=== PATIENT | female | born 1990 | race Caucasian/White ===

== ENCOUNTER 2018-09-08 11:27 | Inpatient (IN) | payer BC ==
[~2018-09-08] VITALS: Ht 154.9 cm; Wt 75.5 kg
[2018-09-08] VITALS (19 sets, daily range): BP systolic 112–162; BP diastolic 61–101; PULSE 88–115; TEMP 97.6–98
[~2018-09-08 11:27] MED LIST: MOTRIN 800800 MG/TAB PO; PERCOCET 325 MG1 TA2 PO
--- NOTE | 2018-09-08 11:40 | NUR ---
Patient ambulatory to LR5, changed into gown, FHR/TOCO monitors placed and explained. Patient states that she was just at the office and stripped her membranes and was having some extra pink tinged mucous and starting marie. SVE-5-/-2 Plan of care discussed and will continue to monitor.
[2018-09-08] MEDS ORDERED: MAGNESIUM CHELA27 MG PO (11:53)
[2018-09-08] MEDS ORDERED: CONCEPT DHA1 CAP PO (11:54)
[2018-09-08] MEDS ORDERED: CALCIUM-MAGNES1 EAC1 PO (11:54)
[2018-09-08] MEDS ORDERED: PRILOSEC10 MG PO (11:55)
--- NOTE | 2018-09-08 12:45 | NUR ---
IV started in left hand, blood drawn and sent to lab, LR infusing. Patient requesting epidural and [employer] notified. 1250: Patient off monitor to void. 1318: Patient sits up on edge of bed for procedure. FHR difficult to trace during this time due to patients position. [employer] at bedside for epidural placement. 1323: Single shot given and patient tolerates well. 1328: Patient repositioned and plan of care discussed. 1355: Patient comfortable with epidural and Damian catheter placed, patient tolerates well. 1412: Dr. Calero at bedside assessing patient/FHR strip. 1415: SVE per physician /-1 and AROM at this time with clear fluid noted. 1420: FHR difficult to trace and patient turn wedged left. FHR baseline 120bpm. 1450: FHR monitor traces maternal heart rate.
[2018-09-08 13:09] LABS: BASO % 0.1 % (0.0-2.0); EOS # 0.1 (0.0-0.7); EOS % 0.4 % (0-4.0); GRAN # 10.7 (1.4-6.5); GRAN % 79.7 % (42.2-75.2); HEMATOCRIT 38.5 % (37.0-47.0); HEMOGLOBIN 12.6 g/dl (12.5-16.0); LYMPH # 1.8 (1.2-3.4); LYMPH % 13.3 % (20.0-51.0); MEAN CELL VOLUME 85 fl (80.0-100.0); MEAN CORPUSCULAR HEMOGLOBIN 28 pg (27.0-31.0); MEAN CORPUSCULAR HGB CONC 33 g/dl (33.0-37.0); MEAN PLATELET VOLUME 10.5 fl (7.4-10.4); MONO # 0.8 (0.1-0.6); MONO % 5.9 % (1.7-9.3); PLATELET COUNT 290 K/mm3 (130-400); RED BLOOD COUNT 4.53 M/mm3 (4.10-5.30)
--- NOTE | 2018-09-08 15:30 | NUR ---
Patient becoming more uncomfortable and [employer] notified. 1605: Dr. Calero at bedside and SVE per physician-10, order to break down bed and set patient up for vaginal delivery. 1610: Damian catheter removed and patient tolerates well. Patient more uncomfortable with contractions. 1616: Bed taken apart and patient set up for delivery. Patient begins to push with contractions per Dr. Calero. 1620: Spontaneous vaginal delivery of head followed by body. Infant to patient abdomen and cord clamped by Dr. Calero and cut by FOB. Jones RN assumes care of . Cord blood obtained. 1624: Spontaneous vaginal delivery of placenta and pitocin bolus started per protocol. Fundal massage done/firm/bleeding WNL. Dr. Calero begins to repair 2nd degree laceration. Pericare done. 1630: Patient repositioned, ice pack to perineum, fundal massage done/firm/bleeding WNL, Plan of care discussed and will continue to monitor.
[2018-09-08] MEDS ORDERED: MOTRIN 800800 MG/TAB PO (16:16)
[2018-09-08] MEDS ORDERED: PERCOCET 325 MG1 TA2 PO (16:16)
--- NOTE | 2018-09-08 18:00 | NUR ---
Patient sits up on edge of bed and dangles feet, epidural catheter removed and patient tolerates well, patient ambulates to bathroom with standby assist. Voids, pericare done, new gown/underwear/ice pack on. Patient ambulates to new room, oriented to room and plan of care discussed.
[2018-09-09 00:15] VITALS: BP 116/79; PULSE 84; TEMP 97.6
[2018-09-09 04:15] VITALS: BP 101/88; PULSE 83; TEMP 97.9
--- NOTE | 2018-09-09 04:26 | NUR ---
PT TO WAKE BABY AND BRSTFEED- ENCOURAGED TO CALL IF ASSIST IS NEEDED
[2018-09-09 06:45] VITALS: BP 118/70; PULSE 90; TEMP 97.4
--- NOTE | 2018-09-09 12:02 | NUR ---
Initial visit; Parents thanked Wet End Operator for offering congratulations and God's blessings to their family for the of their daughter. Wet End Operator thanked them for choosing our hospital.
[2018-09-09 15:00] VITALS: BP 118/72; PULSE 90; TEMP 97.8
--- NOTE | 2018-09-09 17:30 | NUR ---
Discharge instructions given, pt verbalizes understanding. no further questions noted. Bands matched and hugs tag removed.
== END 2018-09-09 18:15 | disposition home or self-care (01) | DRG 807 ==
LOC: LDRO 11:27 → LDR 12:36 → OB 17:18
PROVIDERS: ADMIT Obstetrics & Gynecology
PROC: 10E0XZZ Delivery of Products of Conception, External Approach (ICD-10-PCS; principal; 2018-09-08)
PROC: 0KQM0ZZ Repair Perineum Muscle, Open Approach (ICD-10-PCS; 2018-09-08)
DX: O70.1 Second degree perineal laceration during delivery (principal); Z37.0 Single live birth; O99.344 Other mental disorders complicating childbirth; F41.8 Other specified anxiety disorders; Z3A.38 38 weeks gestation of pregnancy; O76 Abnormality in fetal heart rate and rhythm complicating labor and delivery
CPT/HCPCS: J2590; J2795; J7120

== ENCOUNTER 2023-06-21 12:30 | Outpatient (CLI) | payer BC ==
[~2023-06-21] VITALS: Ht 154.9 cm; Wt 74.1 kg
[~2023-06-21 12:30] MED LIST changes: +ASPIRIN 81M81 MG/TA2 PO; +CALCIUM-MAGNES1 EAC1 PO; +CONCEPT DHA1 CAP PO; +LEVOXYL0.05 MG PO; +LEXAPRO 10MG10 MG PO; +MAGNESIUM CHELA27 MG PO; +MAGNESIUM200 MG PO; +PRILOSEC10 MG PO; +PROGRAF 1MG1 MG PO; +VITAMIN B COMPL1 SGL PO
[2023-06-21] MEDS ORDERED: FERROUS SU325 MG/TAB PO (13:04)
[2023-06-21 13:10] VITALS: BP 137/81; PULSE 99; TEMP 98.2
--- NOTE | 2023-06-21 13:25 | NUR ---
1230- Pt arrives on unit ambulatory by herself. Sent from office after positive nitroxine test in office. Pt states she has had increased discharge over the weekend, having to change her underwear more frequently but denies wearing pads or having large gush of fluid. Pt denies VB, UCs. Reports good FM. Assessments completed. 1255- Dr Calero at bedside. SVE without gel. MD reports feeling BOW through cervix, bloody show noted on exam glove. Amniotrace swab performed, negative. MD gave precautions but gave VORB to discharge Pt home. 1310- EFM and TOCO off. 1325- Discharge paperwork given and explained. Labor precautions given. Pt ambulates off unit in stable condition.
[2023-06-28] MEDS ORDERED: MOTRIN 800800 MG/TAB PO (18:16)
== END 2023-06-21 13:25 | disposition home or self-care (01) ==
LOC: LDRO 12:30
DX: Z34.93 Encounter for supervision of normal pregnancy, unspecified, third trimester (principal); Z3A.36 36 weeks gestation of pregnancy

== ENCOUNTER 2023-06-28 10:50 | Inpatient (IN) | payer BC ==
[~2023-06-28] VITALS: Ht 154.9 cm; Wt 75.5 kg
[2023-06-28] VITALS (26 sets, daily range): BP systolic 117–141; BP diastolic 62–95; PULSE 74–120; TEMP 97.7–97.8
[~2023-06-28 10:50] MED LIST changes: +FERROUS SU325 MG/TAB PO
[2023-06-28] MEDS ORDERED: LR & Oxytocin 500 ML IV SCH (11:00)
[2023-06-28] MEDS ORDERED: LR 1,000 ML IV SCH (11:00)
[2023-06-28 11:36] LABS: BASO % 0.2 % (0.0-2.0); EOS % 0.1 % (0.0-4.0); GRAN # 8.8 K/mm3 (1.4-6.5); GRAN % 78.8 % (42.2-75.2); HEMATOCRIT 40.3 % (37.0-47.0); HEMOGLOBIN 13.3 g/dl (12.5-16.0); LYMPH # 1.7 K/mm3 (1.2-3.4); LYMPH % 15.3 % (20.0-51.0); MEAN CELL VOLUME 89 fl (80.0-100.0); MEAN CORPUSCULAR HEMOGLOBIN 29 pg (27-31); MEAN CORPUSCULAR HGB CONC 33 g/dl (33.0-37.0); MEAN PLATELET VOLUME 10.4 fl (7.4-10.4); MONO # 0.6 K/mm3 (0.1-0.6); PLATELET COUNT 287 K/mm3 (130-400); RED BLOOD COUNT 4.52 M/mm3 (4.10-5.30)
[2023-06-28 11:59] LABS: ALBUMIN 2.8 gm/dL (3.5-5.0); BILIRUBIN,TOTAL 0.4 mg/dL (0.2-1.2); CALCIUM 9.3 mg/dL (8.4-10.2); CREATININE, serum 0.6 mg/dL (0.57-1.11); TOTAL PROTEIN 6.8 gm/dL (6.2-8.1)
--- NOTE | 2023-06-28 12:03 | NUR ---
Pt sent over as direct admit from office per Dr. Calero. Pt arrives ambulatory at 1100, changes into gown, EFM explained and placed. VS and assessment done. Pt denies leaking fluid and vaginal bleeding, does report some spotting after appointment today. Pt reports good movement and some irregular contractions. Pt denies current headache and vision changes, denies current pain. IV started in left forearm, labs drawn, LR started per protocol. FHR Cat I, occasional contractions noted.
--- NOTE | 2023-06-28 12:20 | NUR ---
Dr. Calero to bedside at 1205. SVE /-2. AROM at 1207, clear fluid noted. Pitocin started at this time per physician orders.
[2023-06-28] MEDS ORDERED: ROPivacaine PF 0.2% 200 ML IV ONE (13:41)
--- NOTE | 2023-06-28 14:40 | NUR ---
Josh Dumont, PRESCRIPTION BENEFIT SPECIALIST to bedside at 1340. Pt repositioned sitting at bedside for epidural placement FHM tracing maternal HR in this position. Test dose given at 1356, pt HR spike and pt reported feeling funny. Josh Dumont removed epidural catheter and placed again. Second test dose given at 1359. Pt tolerated well. Pt repositioned low fowlers at 1407.
[2023-06-28] MEDS ORDERED: Naloxone 0.4 MG/ML VIAL IV PRN ×2 (14:45→17:15)
[2023-06-28] MEDS ORDERED: ePHEDrine 50 MG/10 ML VIAL IV PRN (14:45)
[2023-06-28] MEDS ORDERED: diphenhydrAMINE 25 MG CAP PO PRN (14:45)
[2023-06-28] MEDS ORDERED: Ondansetron 4 MG/2 ML VIAL IV PRN (14:45)
[2023-06-28] MEDS ORDERED: diphenhydrAMINE 50 MG/ML 1 ML VIAL IV PRN (14:45)
[2023-06-28] MEDS ORDERED: Mag/Al Hydrox/Simeth Susp 30 ML CUP PO PRN (17:15)
[2023-06-28] MEDS ORDERED: Ibuprofen 800 MG TAB PO SCH (17:15)
[2023-06-28] MEDS ORDERED: Measles/Mumps/Rubella Virus Vaccine Live w Diluent 0.5 ML VIAL SQ SCH (17:15)
[2023-06-28] MEDS ORDERED: Acetaminophen 500 MG TAB PO PRN (17:15)
[2023-06-28] MEDS ORDERED: Phenylephrine/Mineral Oil/Petrolatum 57 GM TUBE RC PRN (17:15)
[2023-06-28] MEDS ORDERED: Magnes Hydrox (MOM) 80 MG/ML 30 ML CUP PO PRN (17:15)
[2023-06-28] MEDS ORDERED: Witch Hazel 50% Pads Bulk TUB TP PRN (17:15)
[2023-06-28] MEDS ORDERED: oxyCODONE 5 MG TAB PO PRN (17:15)
[2023-06-28] MEDS ORDERED: Loratadine 10 MG TAB PO PRN (17:15)
--- NOTE | 2023-06-28 17:20 | NUR ---
Dr. Calero to bedside at 1632, SVE per provider /+3. Pt repositioned for delivery, nursery RN and rn charge called to room. Damian removed at 1635, 300ml urine noted. delivered spontaneously at 1644, placed on mother's abdomen by Dr. Calero. Cord clamped by Dr. Calero and cut by father, care of infant transferred to Loren, RN of nursery. Placenta delivered spontaneously at 1647, pitocin started per protocol at this time. Repair of 2nd degree laceration performed by Dr. aClero. Pericare provided, ice pack placed, pt repositioned for comfort.
[2023-06-28] MEDS ORDERED: traZODone 50 MG TAB PO PRN (21:00)
--- NOTE | 2023-06-28 21:00 | NUR ---
Up to bathroom with slightly unsteady gait. Voids scant amount, performs own pricare. Pads, panties, clean gown on. Transferred to room via 'tony steady' . Oriented to room, post- plan care. Instructed to call for assisteance when needs to get up out of bed. Verbalizes understanding.
[2023-06-29 00:30] VITALS: BP 138/78; PULSE 74
[2023-06-29 07:00] VITALS: BP 133/93; PULSE 100; TEMP 98.4
[2023-06-29] MEDS ORDERED: Sennosides/Docusate 8.6-50 MG TAB PO SCH (08:00)
[2023-06-29] MEDS ORDERED: Escitalopram 10 MG TAB PO SCH (09:00)
--- NOTE | 2023-06-29 09:59 | NUR ---
Initial visit; Parents thanked Personal Injury Law Specialist for offering congratulations and God's blessings for the of their daughter. Personal Injury Law Specialist thanked family for choosing [facility].
[2023-06-29 14:45] VITALS: BP 125/80; PULSE 90; TEMP 98.2
--- NOTE | 2023-06-29 19:45 | NUR ---
1945- NURSE TO ROOM. DISCHARGE INSTRUCTIONS GIVEN AND PT VERBALIZES UNDERSTANDING. FORMS SIGNED. MMR INJECTION TO RIGHT ARM CHARTED. 2004- PT ESCORTED TO EXIT FOR DISMISSAL. BELONGINGS AND BABY WITH PT, ACCOMPANIED BY SPOUSE.
== END 2023-06-29 20:05 | disposition home or self-care (01) | DRG 807 ==
LOC: LDRO 10:50 → OB 10:56 → LDR 10:56 → OB 21:30
PROVIDERS: ADMIT Obstetrics & Gynecology
PROC: 10E0XZZ Delivery of Products of Conception, External Approach (ICD-10-PCS; principal; 2023-06-28)
PROC: 0KQM0ZZ Repair Perineum Muscle, Open Approach (ICD-10-PCS; 2023-06-28)
PROC: 10907ZC Drainage of Amniotic Fluid, Therapeutic from Products of Conception, Via Natural or Artificial Opening (ICD-10-PCS; 2023-06-28)
PROC: 3E033VJ Introduction of Other Hormone into Peripheral Vein, Percutaneous Approach (ICD-10-PCS; 2023-06-28)
DX: O13.4 Gestational [pregnancy-induced] hypertension without significant proteinuria, complicating childbirth (principal); Z37.0 Single live birth; O70.1 Second degree perineal laceration during delivery; O99.344 Other mental disorders complicating childbirth; F32.A Depression, unspecified; E03.9 Hypothyroidism, unspecified; O99.62 Diseases of the digestive system complicating childbirth; O99.284 Endocrine, nutritional and metabolic diseases complicating childbirth; K21.9 Gastro-esophageal reflux disease without esophagitis; F41.9 Anxiety disorder, unspecified; Z3A.37 37 weeks gestation of pregnancy; Z23 Encounter for immunization
CPT/HCPCS: J2590; J2795; J7120